=== PATIENT | male | born 1985 | race Asian ===

== ENCOUNTER → 2017-12-13 | Outpatient (CLI) | payer OTHER | END | disposition home or self-care (01) | LOC: C.LAB1850 12:27 | PROVIDERS: ATTEND Neuromusculoskeletal Medicine & OMM | DX: Z82.49 Family history of ischemic heart disease and other diseases of the circulatory system (principal); Z13.220 Encounter for screening for lipoid disorders; Z13.1 Encounter for screening for diabetes mellitus ==